=== PATIENT | female | born 1945 | race Caucasian/White ===

== ENCOUNTER 2021-06-10 07:03 | Day surgery (SDC) | payer MEDICARE ==
[2021-06-03 12:06] LABS: BASOPHILS # (AUTO) 0.1 X10'3 (0-0.2); BASOPHILS % (AUTO) 0.9 % (0-1); EOSINOPHILS # (AUTO) 0.3 X10'3 (0-0.9); EOSINOPHILS % (AUTO) 3.6 % (0-6); LYMPHOCYTES # (AUTO) 2.3 X10'3 (1.1-4.8); LYMPHOCYTES % (AUTO) 31.7 % (21-51); MEAN CORPUSCULAR HGB CONC 32.5 g/dL (33.0-36.5); MEAN CORPUSCULAR VOLUME 92.3 FL (78-98); MEAN PLATELET VOLUME 8.7 FL (7.4-10.4); MONOCYTES # (AUTO) 0.9 X10'3 (0-0.9); MONOCYTES % (AUTO) 12.5 % (2-12); NEUTROPHILS # (AUTO) 3.7 X10'3 (1.8-7.7); NEUTROPHILS % (AUTO) 51.3 % (42-75); PRE OP HEMATOCRIT 39.3 % (35.0-45.0); PRE OP HEMOGLOBIN 12.8 g/dL (12.0-16.0); PRE OP PLATELET COUNT 328 X10'3 (140-440); RED BLOOD COUNT 4.26 X10'6 (4.20-5.60); RED CELL DISTRIBUTION WIDTH 13.8 % (11.5-14.5)
[2021-06-03 12:24] LABS: ALBUMIN 3.7 G/DL (3.4-5.0); ALBUMIN/GLOBULIN RATIO 1.3 (1.1-1.5); ALKALINE PHOSPHATASE 129 IU/L (46-116); BLOOD UREA NITROGEN 13 MG/DL (7-18); BUN/CREATININE RATIO 29.5 (6.6-38.0); CALCIUM 8.7 MG/DL (8.5-10.1); CHLORIDE 102 MMOL/L (99-107); CREATININE 0.44 MG/DL (0.40-0.90); PRE OP ALT 40 U/L (30-65); PRE OP ANION GAP 8 (8-16); PRE OP AST 28 U/L (10-37); PRE OP BILIRUB, TOTAL 0.4 MG/DL (0.0-1.0); PRE OP GLUCOSE 90 MG/DL (70-104); PRE OP POTASSIUM 4.5 MMOL/L (3.4-5.1); PRE OP SODIUM 136 MMOL/L (135-145); TOTAL CARBON DIOXIDE 25.8 MMOL/L (24-32); TOTAL PROTEIN 6.5 G/DL (6.4-8.2); eGFR > 90 ML/MIN
[~2021-06-10] VITALS: Ht 165.1 cm; Wt 51.3 kg
[2021-06-10] VITALS (7 sets, daily range): BP systolic 121–154; BP diastolic 62–98
[~2021-06-10 07:03] MED LIST: HYDR12.55 PO; LISI20TA28 PO; cefazolin/dext.iso 2gm/100ml IV ONE; famotidine 20mg tablet PO ONE; ringers solution, lacted 1,000 ML IV SCH
[2021-06-10] MEDS ORDERED: sevoflurane 250ml liquid IH ONE (09:12)
[2021-06-10] MEDS ORDERED: morphine 2 MG/ML inj. syringe IV PRN (09:15)
[2021-06-10] MEDS ORDERED: acetaminophen 1,000mg/100ml IV 100 ML IV PRN (09:15)
[2021-06-10] MEDS ORDERED: ondansetron/PF 4mg/2ml inj IV PRN (09:15)
[2021-06-10] MEDS ORDERED: morphine 4 MG/ML inj SYRINge IV PRN (09:15)
[2021-06-10] MEDS ORDERED: labetalol 20mg/4ml (5mg/ml) syringe IV PRN (09:15)
[2021-06-10] MEDS ORDERED: ringers solution, lacted 1,000 ML IV SCH (09:15)
[2021-06-10] MEDS ORDERED: meperidine/PF 25mg/ml syringe IV PRN ×3 (09:15)
[2021-06-10] MEDS ORDERED: hydrALAZINE 20mg/ml inj. IV PRN (09:15)
[2021-06-10] MEDS ORDERED: proCHLORperazine 10 MG/2 ml inj IV PRN (09:15)
[2021-06-10] MEDS ORDERED: BUPIVAcaine/PF 2.5mg/ml (0.25%) 10ml vial ONE (09:18)
[2021-06-10] MEDS ORDERED: LIDOcaine 1% 30ml preserv. free vial ONE (09:18)
[2021-06-10] MEDS ORDERED: fentaNYL/PF 50MCG/1 ML 2ML syringe ONE (09:24)
[2021-06-10] MEDS ORDERED: midazolam 1 mg/ML 2ml injection ONE (09:24)
[2021-06-10] MEDS ORDERED: esmolol inj. 10 ML IV ONE ×2 (09:34→09:49)
[2021-06-10] MEDS ORDERED: propofol inj 20 ML IV ONE (09:49)
[2021-06-10] MEDS ORDERED: dexamethasone sod phosphate 4mg/ml inj. ONE (09:49)
[2021-06-10] MEDS ORDERED: LIDOcaine 2% (20mg/ml) 5ml vial ONE (09:49)
[2021-06-10] MEDS ORDERED: ondansetron/PF 4mg/2ml inj ONE (09:49)
[2021-06-10] MEDS ORDERED: rocuronium 10mg/ml inj IV ONE (09:49)
[2021-06-10] MEDS ORDERED: neostigmine methylsulfate 1 MG/ML 10ml vial ONE (10:25)
[2021-06-10] MEDS ORDERED: metoprolol tartrate 1mg/ml inj IV ONE (10:25)
[2021-06-10] MEDS ORDERED: glycopyrrolate 0.2mg/ml inj ONE (10:25)
--- NOTE | 2021-06-10 10:31 | NUR ---
Received from OR via [facility] , accompanied by Anesthesiologist CHARITY and report given by Anesthesiolgist. PATIENT WITH 20G PIV IN RIGHT UE RUNNING LR AT 100. DENIES NEED FOR PAIN MEDS AT THIS TIME. 3 ABDOMNIAL BANDAIDS PRESENT THAT ARE CDI. VSS. Addendum: 06/10/21 at 1040 by Fernando Meadows RN, RN Amended: Links added.
[2021-06-10] MEDS ORDERED: acetaminophen 325mg tablet PO PRN (10:40)
--- NOTE | 2021-06-10 11:31 | NUR ---
ALL DISCHARGE CRITERIA HAS BEEN MET. VSS. DENIES PAIN. DRESSED WITH FEMALE RN BRAXTON. PATIENT UNDERSTOOD ALL DC INSTRUCTIONS. DRESSINGS TO ABDOMEN ARE CDI. SPOUSE DROVE PATIENT HOME Addendum: 06/10/21 at 1155 by Fernando Chris - BILL KHAN Amended: Links added.
== END 2021-06-10 11:31 | disposition home or self-care (01) ==
LOC: PAS 07:03
PROVIDERS: ATTEND Surgery
DX: K40.90 Unilateral inguinal hernia, without obstruction or gangrene, not specified as recurrent (principal); K41.90 Unilateral femoral hernia, without obstruction or gangrene, not specified as recurrent; K42.9 Umbilical hernia without obstruction or gangrene; I10 Essential (primary) hypertension; I44.7 Left bundle-branch block, unspecified; Z20.822 Contact with and (suspected) exposure to COVID-19; Z79.899 Other long term (current) drug therapy; Z90.710 Acquired absence of both cervix and uterus; Z98.890 Other specified postprocedural states; Z87.440 Personal history of urinary (tract) infections; Z80.9 Family history of malignant neoplasm, unspecified; Z80.49 Family history of malignant neoplasm of other genital organs
CPT/HCPCS: 36415; 49585; 49650; 80053; 82948; 85025; 93005; C1781; J1100; J2001; J2250; J2405; J2704; J2710; J3010; J3490; J7120; S2900; U0003; U0005; Z7506; Z7508; Z7512; A4215; A4618; A7000

== ENCOUNTER 2025-01-28 13:28 | Outpatient (CLI) | payer MEDICARE ==
[~2025-01-28 13:28] MED LIST changes: -cefazolin/dext.iso 2gm/100ml IV ONE; -famotidine 20mg tablet PO ONE; -ringers solution, lacted 1,000 ML IV SCH
== END 2025-01-28 23:59 | disposition home or self-care (01) ==
LOC: RAD 13:28
PROVIDERS: ATTEND Student in an Organized Health Care Education/Training Program
DX: R51.9 Headache, unspecified (principal)
CPT/HCPCS: 70450